=== PATIENT | female | born 1995 | race Caucasian/White ===

== ENCOUNTER 2018-12-17 10:31 | Emergency (ER) | payer OTHER ==
[~2018-12-17] VITALS: Ht 160 cm; Wt 79.8 kg
[2018-12-17 10:35] VITALS: Ht 160 cm; Wt 79.8 kg
[2018-12-17 12:27] LABS: BASOPHIL % 0.4 % (0-2); PLATELET COUNT 207 x10^3mcL (130-400); RED CELL DISTRIBUTION WIDTH 13.9 % (11.5-14.5)
[2018-12-17 13:58] VITALS: BP 96/63
== END 2018-12-17 13:58 | disposition home or self-care (01) ==
LOC: ED 10:31
PROVIDERS: Emergency Medicine
DX: N92.0 Excessive and frequent menstruation with regular cycle (principal); F41.9 Anxiety disorder, unspecified; V49.88XA Car occupant (driver) (passenger) injured in other specified transport accidents, initial encounter; Y93.I9 Activity, other involving external motion; Y92.413 State road as the place of occurrence of the external cause; Y99.8 Other external cause status
CPT/HCPCS: 36415

== ENCOUNTER 2019-03-27 13:22 | Emergency (ER) | payer OTHER | END 2019-03-27 14:02 | disposition left against medical advice (07) | LOC: ED 13:22 | DX: Z53.21 Procedure and treatment not carried out due to patient leaving prior to being seen by health care provider (principal) ==